=== PATIENT | female | born 1970 | race Caucasian/White ===

== ENCOUNTER → 2023-09-02 09:20 | Outpatient (REF) | payer OTHER, SELFPAY ==
[2023-09-02 12:47] LABS: APTT 32.8 Sec (23.4-35.0)
[2023-09-02 12:56] LABS: % Basophils 1.3 % (0-2); % Eosinophils 1.9 % (0-6); % Immature Granulocytes 0.3 % (0-0.5); % Lymphocytes 28.1 % (20.5-51.1); % Monocytes 7.6 % (1.7-9.3); % Neutrophils 60.8 % (42.2-75.2); Absolute Basophils 0.1 10^3/uL (0-0.2); Absolute Eosinophils 0.1 10^3/uL (0-0.7); Absolute Lymphocytes 1.9 10^3/uL (1.2-3.4); Absolute Monocytes 0.5 10^3/uL (0.1-0.6); Absolute Neutrophils 4.1 10^3/uL (1.4-6.5); Hematocrit 39.4 % (37.0-47.0); Hemoglobin 13.2 g/dL (12.0-16.0); Mean Corp Hgb Conc. 33.5 g/dL (33.0-37.0); Mean Corpuscular Hgb 30.6 pg (27.0-31.0); Mean Corpuscular Volume 91.4 fL (81.0-99.0); Mean Platelet Volume 9.4 fL (7.4-10.4); Nucleated Red Blood Cells % 0 %; Platelet Count 242 10^3/uL (130-400); Red Blood Cell Count 4.31 10^6/uL (4.20-5.40); Red Cell Dist. Width 11.9 % (11.5-14.5); White Blood Cell Count 6.7 10^3/uL (4.8-10.8)
[2023-09-02 13:01] LABS: ALT (SGPT) 15 U/L (0-35); AST (SGOT) 22 U/L (14-36); Albumin 4.1 g/dl (3.5-5.0); Alkaline Phosphatase 60 U/L (38-126); Blood Urea Nitrogen 18 mg/dl (7-17); Calcium 9.6 mg/dl (8.4-10.2); Carbon Dioxide 30 mmol/L (22-30); Chloride 106 mmol/L (98-107); Glucose 85 mg/dl (70-99); HDL Cholesterol 67 mg/dl; LDL Cholesterol, Calculated 114 mg/dl; Potassium 3.8 mmol/L (3.5-5.1); Sodium 139 mmol/L (135-145); Total Bilirubin 0.7 mg/dl (0.2-1.3); Total Cholesterol 192 mg/dl (50-199); Total Protein 6.9 g/dl (6.3-8.2); Triglyceride 59 mg/dl (10-149); Very Low Density Lipoprotein 11 mg/dl (0-30); eGFR > 60.00
[2023-09-02 15:11] LABS: TSH 1.75 uIU/ml (0.47-4.68)
== END ==
LOC: HWWDC 09:20
PROVIDERS: ATTENDING PHYSICIAN Physician Assistant Medical; REFERRING PHYSICIAN Obstetrics & Gynecology Gynecology
DX: Z12.31 Encounter for screening mammogram for malignant neoplasm of breast (principal); Z00.00 Encounter for general adult medical examination without abnormal findings; R23.3 Spontaneous ecchymoses; Z86.2 Personal history of diseases of the blood and blood-forming organs and certain disorders involving the immune mechanism; D35.2 Benign neoplasm of pituitary gland
CPT/HCPCS: 36415; 77063; 77067; 80053; 80061; 84146; 84443; 85025; 85610; 85730

== ENCOUNTER → 2024-03-16 09:34 | Outpatient (REF) | payer OTHER, SELFPAY | LOC: HWRAD 09:34 | PROVIDERS: ATTENDING PHYSICIAN Nurse Practitioner Family | DX: M79.661 Pain in right lower leg (principal) | CPT/HCPCS: 73564; 73590 ==

== ENCOUNTER → 2024-08-15 08:40 | Outpatient (REF) | payer OTHER, SELFPAY ==
[2024-08-15 09:15] LABS: % Basophils 1.1 % (0-2); % Eosinophils 2.8 % (0-6); % Immature Granulocytes 0.5 % (0-0.5); % Lymphocytes 22.5 % (20.5-51.1); % Monocytes 8.4 % (1.7-9.3); % Neutrophils 64.7 % (42.2-75.2); Absolute Basophils 0.1 10^3/uL (0-0.2); Absolute Eosinophils 0.2 10^3/uL (0-0.7); Absolute Lymphocytes 1.8 10^3/uL (1.2-3.4); Absolute Monocytes 0.7 10^3/uL (0.1-0.6); Absolute Neutrophils 5.2 10^3/uL (1.4-6.5); Hematocrit 40.6 % (37.0-47.0); Hemoglobin 13.6 g/dL (12.0-16.0); Mean Corp Hgb Conc. 33.5 g/dL (33.0-37.0); Mean Corpuscular Hgb 31.6 pg (27.0-31.0); Mean Corpuscular Volume 94.2 fL (81.0-99.0); Nucleated Red Blood Cells % 0 %; Platelet Count 224 10^3/uL (130-400); Red Blood Cell Count 4.31 10^6/uL (4.20-5.40); Red Cell Dist. Width 12.2 % (11.5-14.5); White Blood Cell Count 8.1 10^3/uL (4.8-10.8)
[2024-08-15 09:58] LABS: Vitamin D, 25-OH*** 31.2 ng/mL (30-80)
[2024-08-15 10:06] LABS: ALT (SGPT) 16 U/L (0-35); AST (SGOT) 19 U/L (14-36); Albumin 4.5 g/dl (3.5-5.0); Alkaline Phosphatase 62 U/L (38-126); Blood Urea Nitrogen 31 mg/dl (7-17); Calcium 10.1 mg/dl (8.4-10.2); Carbon Dioxide 29 mmol/L (22-30); Chloride 107 mmol/L (98-107); Glucose 94 mg/dl (70-99); HDL Cholesterol 61 mg/dl; Iron 77 ug/dl (37-170); LDL Cholesterol, Calculated 130 mg/dl; Potassium 4.4 mmol/L (3.5-5.1); Sodium 145 mmol/L (135-145); Total Bilirubin 0.6 mg/dl (0.2-1.3); Total Cholesterol 204 mg/dl (50-199); Triglyceride 65 mg/dl (10-149); Very Low Density Lipoprotein 13 mg/dl (0-30); eGFR > 60.00
[2024-08-15 10:11] LABS: TSH 1.84 uIU/ml (0.47-4.68)
[2024-08-15 10:15] LABS: Ferritin 52.9 ng/ml (11.1-264.0)
[2024-08-15 10:47] LABS: Folate 7.7 ng/ml (2.76-20); Vitamin B12 347 pg/ml (239-931)
[2024-08-15 12:00] LABS: Prolactin 60.8 ng/ml (3.0-18.6)
== END ==
LOC: REG 08:40
PROVIDERS: ATTENDING PHYSICIAN Physician Assistant Medical; FAMILY PHYSICIAN Family Medicine
DX: Z00.00 Encounter for general adult medical examination without abnormal findings (principal); Z86.2 Personal history of diseases of the blood and blood-forming organs and certain disorders involving the immune mechanism; D53.9 Nutritional anemia, unspecified; R53.83 Other fatigue; D35.2 Benign neoplasm of pituitary gland; E55.9 Vitamin D deficiency, unspecified
CPT/HCPCS: 36415; 80053; 80061; 82306; 82607; 82728; 82746; 83540; 84146; 84443; 85025

== ENCOUNTER → 2024-09-12 10:12 | Outpatient (REF) | payer OTHER, SELFPAY | LOC: MRI 3T 10:12 | PROVIDERS: ATTENDING PHYSICIAN Family Medicine; FAMILY PHYSICIAN Physician Assistant Medical | DX: D35.2 Benign neoplasm of pituitary gland (principal); R79.89 Other specified abnormal findings of blood chemistry; Z86.39 Personal history of other endocrine, nutritional and metabolic disease; M23.91 Unspecified internal derangement of right knee; M17.11 Unilateral primary osteoarthritis, right knee; M76.51 Patellar tendinitis, right knee | CPT/HCPCS: 70553; 73721; A9575 ==

== ENCOUNTER → 2024-11-07 11:14 | Outpatient (REF) | payer OTHER, SELFPAY | LOC: WDC 11:14 | PROVIDERS: ATTENDING PHYSICIAN Physician Assistant Medical | DX: Z12.31 Encounter for screening mammogram for malignant neoplasm of breast (principal) | CPT/HCPCS: 77063; 77067 ==

== ENCOUNTER → 2024-12-06 06:30 | Outpatient (REF) | payer OTHER, SELFPAY ==
--- NOTE | 2024-12-06 09:50 | OID.BR.INTR ---
KATHARIN[facility] Breast Navigator - Initial
- -
Date of Contact: 12/06/24
Met with patient. Patient given written information on navigator service available at [facility]. Will follow up as needed per protocol.
== END ==
LOC: WDC 06:30
PROVIDERS: ATTENDING PHYSICIAN Physician Assistant Medical
DX: R92.1 Mammographic calcification found on diagnostic imaging of breast (principal)
CPT/HCPCS: 88305; 19081; 19082; 76098; A4648

== ENCOUNTER → 2025-02-06 18:14 | Outpatient (REF) | payer OTHER, SELFPAY ==
[2025-02-06 19:05] LABS: Hematocrit 36.3 % (37.0-47.0); Hemoglobin 13.2 g/dL (12.0-16.0); Mean Corp Hgb Conc. 36.4 g/dL (33.0-37.0); Mean Corpuscular Volume 95.3 fL (81.0-99.0); Nucleated Red Blood Cells % 0 %; Platelet Count 251 10^3/uL (130-400); Red Cell Dist. Width 12.1 % (11.5-14.5)
[2025-02-06 19:12] LABS: ALT (SGPT) 14 U/L (0-35); AST (SGOT) 18 U/L (14-36); Albumin 4.2 g/dl (3.5-5.0); Alkaline Phosphatase 61 U/L (38-126); Blood Urea Nitrogen 15 mg/dl (7-17); Calcium 9.5 mg/dl (8.4-10.2); Carbon Dioxide 30 mmol/L (22-30); Chloride 106 mmol/L (98-107); Glucose 83 mg/dl (70-99); Potassium 4.0 mmol/L (3.5-5.1); Sodium 140 mmol/L (135-145); Total Protein 7.1 g/dl (6.3-8.2); eGFR > 60.00
[2025-02-06 19:20] LABS: Iron 89 ug/dl (37-170)
[2025-02-06 19:44] LABS: TSH 1.62 uIU/ml (0.47-4.68)
[2025-02-06 19:49] LABS: Ferritin 73.2 ng/ml (11.1-264.0)
[2025-02-06 20:20] LABS: Folate 8.8 ng/ml (2.76-20)
[2025-02-07 16:01] LABS: Lyme Antibody Screen, EIA Negative (Negative)
== END ==
LOC: CLAB 18:14
PROVIDERS: ATTENDING PHYSICIAN Physician Assistant Medical
DX: M79.7 Fibromyalgia (principal); R53.83 Other fatigue; R23.3 Spontaneous ecchymoses
CPT/HCPCS: 36415; 80053; 82728; 82746; 83540; 84443; 85025; 85652; 86618